=== PATIENT | male | born 1990 | race Caucasian/White ===

== ENCOUNTER 2022-07-28 18:44 | Emergency (ER) | payer OTHER, SELFPAY ==
[2022-07-28 18:46] VITALS: BP 169/95; PULSE 127; RESP 14; TEMP 36.8; O2SAT 93; BMI 36.8
--- NOTE | 2022-07-28 18:52 | EX.ED.GENINJ ---
HPI <LAURA Ring - Last Filed: 07/28/22 19:38> History of Present Illness Chief Complaint: Laceration Narrative Narrative: Patient was carving a pumpkin when he accidentally cut the webspace between his left thumb and index finger. He is right-hand dominant. Bleeding controlled. This occurred just prior to arrival. Last tetanus unknown. PFSH <LAURA Ring - Last Filed: 07/28/22 19:38> PFSH Medical History Smoker Allergy/AdvReac Type Severity Reaction Status Date / Time No Known Allergies Allergy Verified 07/28/22 18:45 Social History Smoking Status: Current every day smoker tobacco type: e-cigarettes ROS <LAURA Ring - Last Filed: 07/28/22 19:38> ROS ED ROS Narrative Constitutional: Negative for fever, chills, malaise. Eyes: Negative for visual change. ENT: Negative for sore throat, rhinorrhea. CVS: Negative for palpitations, chest pain. Respiratory: Negative for shortness of breath, cough. GI: Negative for abdominal pain, nausea, vomiting. : Negative for dysuria, hematuria or frequency. Neuro: Negative for motor/sensory dysfunction. Skin: Positive for laceration. Musc: Negative for joint pain, swelling, trauma. Heme: Negative for easy bruising, bleeding, lymphadenopathy. EXAM <LAURA Ring - Last Filed: 07/28/22 19:38> Physical Exam Narrative Exam Narrative: CONST: Patient sitting in no acute distress. EYES: Normal inspection. NECK: Normal inspection. RESP: No respiratory distress, CTAB. CVS: Regular rate and rhythm, no murmur, no gallop. SKIN: 1 cm laceration in the webspace between left thumb and index finger. EXTREMITIES: Normal appearance, full range of motion with normal motor and sensory function in median ulnar and radial distributions, 2+ radial pulse and brisk cap refill in all digits of left upper extremity. NEURO: Oriented x4. PSYCH: Normal affect. Const Vital Signs: 07/28/22 18:46 Temperature 98.2 F Temperature Source Temporal Pulse Rate 127 H Respiratory Rate 14 Blood Pressure 169/95 H Blood Pressure Mean 119 Pulse Ox 93 Oxygen Delivery Method Room Air <Dr. David Richard MD - Last Filed: 07/28/22 19:18> Physical Exam Const Vital Signs: 07/28/22 18:46 Temperature 98.2 F Temperature Source Temporal Pulse Rate 127 H Respiratory Rate 14 Blood Pressure 169/95 H Blood Pressure Mean 119 Pulse Ox 93 Oxygen Delivery Method Room Air <Dr. David Richard MD - Last Filed: 07/28/22 19:18> Procedures Lacerations left hand: Length: 1 cm Comment: see details below MDM <LAURA Ring - Last Filed: 07/28/22 19:38> [facility] Narrative Medical decision making narrative: Patient has a 1 cm laceration to the webspace between the left thumb and index finger from a pumpkin carving knife. Extremity has full range of motion and is neurovascularly intact. Wound was anesthetized with 2 cc of 1% lidocaine and thoroughly irrigated with sterile saline. Prepped and draped in sterile condition. I closed the wound with 3 simple interrupted sutures of 5-0 Ethilon with good approximation. Bacitracin bandage applied and we discussed wound care and to return for signs of infection. Tetanus was updated. Patient was counseled to have stitches removed in 7 days and was discharged in stable condition. <Dr. David Richard MD - Last Filed: 07/28/22 19:18> [facility] Treatment and Re-Evaluation Narrative: Seen and evaluated independently and in conjunction with physician assistant professor of criminal justice. Agree with notes above unless documented otherwise. 1 cm linear clean laceration in the webspace between the thumb and the left index finger. Agree with repair and tetanus update. Neurovascular intact distally before and after repair. Discharge Plan Triage Chief Complaint: Laceration ED Midlevel Provider: Ирина Chao ED Provider: David Richard Dx/Rx/DC Orders Clinical Impression: Laceration of hand, left Instructions: ED Laceration Extremity Primary Care Provider: Care Physician,No Primary Referrals: Helio Avelar MD [Non-Staff] - Activity Restrictions/Additional Instructions: You can shower as normal but do not submerge hands underwater for any period of time. Stitches need removed in 7 days. If any signs of infection like redness swelling or pus develop come back to the ER immediately Disposition Disposition: Home, Self Care
[2022-07-28] MEDS: Diphth,Pertuss(Acell),Tet Vac 0.5 ML Vial IM (19:17)
[2022-07-28 19:48] VITALS: BP 145/75; PULSE 89; RESP 16; O2SAT 98
[2022-07-28] MEDS: Lidocaine 1% (20 ml mdv) 20 ML Vial INFILT (19:49)
== END 2022-07-28 19:55 | disposition home or self-care (01) ==
LOC: ED 19:20
PROVIDERS: Emergency Provider Emergency Medicine; Visit Provider Emergency Medicine
DX: S61.412A Laceration without foreign body of left hand, initial encounter (principal); F17.290 Nicotine dependence, other tobacco product, uncomplicated; Z23 Encounter for immunization; W26.0XXA Contact with knife, initial encounter
CPT/HCPCS: 12001; 90471; 90715; 99283

== ENCOUNTER 2023-01-16 06:48 | Emergency (ER) | payer OTHER, SELFPAY ==
[2023-01-16 06:49] VITALS: BP 187/96; PULSE 109; RESP 18; TEMP 36.6; O2SAT 98; BMI 38.5
--- NOTE | 2023-01-16 07:10 | EDS_ITS ---
HPI History of Present Illness Chief Complaint: Burn Narrative Narrative: 32-year old male who denies significant past medical history, [id number], presents with burn to the dorsum of his left hand mainly on his fingers, numbers 3 4 and 5. He states yesterday at work, his manifold hose got stuck. While he was working, he was wearing gloves that had rubber on the palms, but mesh on the back. There was no refrigerant leak, and he sustained [place] to the back of his fingers on his right hand. He denies other injury. He rinsed off the refrigerant, and continue to work. At around 4 PM yesterday, he started having pain in his digits. He awoke this morning with blistering of the skin on the back of his right hand, once again mainly digits 4 and 3, and 5. He presents because of the pain and to file Workmen's Comp. compensation. [facility] Medical History Smoker Medical History no medical history Home Medications ibuprofen 200 mg tablet 400 mg PO DAILY 01/16/23 [History Last Taken Unknown] Allergy/AdvReac Type Severity Reaction Status Date / Time No Known Allergies Allergy Verified 07/28/22 18:45 Social History Smoking Status: Current every day smoker tobacco type: e-cigarettes ROS ROS ED ROS Narrative Constitutional: No fever, no chills. HEENT: No sore throat. No neck pain. No loss of vision. No rhinorrhea. Cardiovascular: No chest pain. No palpitations. No pedal edema. Respiratory: No cough, no shortness of breath. Abdominal: No abdominal pain. No nausea. No vomiting. Genitourinary: No dysuria. No hematuria. Musculoskeletal: No myalgias. No arthralgias. Neurologic: No headaches. No dizziness. No lightheadedness. Skin: No rash. No change in color. Positive blistering of skin on back of fingers of right hand. Psychiatric: No depression. No anxiety. EXAM Physical Exam Narrative Exam Narrative: Afebrile. Vital signs noted. HEENT: Normocephalic. Atraumatic. PERRL, EOMI. Neck soft and supple. No point tenderness or step off. Cardiovascular: Regular rate and rhythm. No murmurs, rubs, or gallops appre ciated. Respiratory: No tachypnea. Lungs clear to auscultation bilaterally. Gastrointestinal: Abdomen soft, nontender, with normoactive bowel sounds. No rebound or guarding. Neurological: Awake. Alert. Nonfocal, nonlateralizing. Skin: No rash. Normal color. Positive blistering of skin on dorsum of fingers, mainly #4, #3, and #5. No circumferential [place] or swelling. Good capillary refill. Able to abduct and adduct fingers. Able to oppose thumb. Some first- degree [place] on fingers of left hand and on second finger right hand. Second- degree [place] mainly on right hand and aforementioned fingers Musculoskeletal: No pedal edema. Full range of motion extremities. Range of motion of fingers on #4 mildly limited secondary to tense blister. Patient is able to write with his right hand. Const Vital Signs: 01/16/23 06:49 01/16/23 06:53 Temperature 97.9 F Temperature Source Oral Pulse Rate 109 H Respiratory Rate 18 Respiratory Effort Normal Blood Pressure 187/96 H Blood Pressure Mean 126 Pulse Ox 98 Oxygen Delivery Method Room Air MDM MDM MDM Narrative Medical decision making narrative: I do feel that this is a chemical burn that is at least 18 hours old. He has already cleansed the area. He was told to keep the area clean and dry, and keep the blisters intact. He will be placed in a dry, sterile dressing. He was also offered follow-up at the [place] [facility] [place]. He was also referred to the [facility]. He was given a note for limited use of his right hand at work for the next week or until cleared by [facility]. I feel he can be discharged safely home with follow-up. He received his last tetanus immunization in July of last year. He will look for signs of infection including fever, drainage of pus from the wounds. He was told of the risk of scarring to his skin and acknowledges an understanding. Return instructions to the emergency department were reviewed. Disposition is discharged home in stable condition. Discharge Plan Triage Chief Complaint: Burn ED Provider: Dereje Marroquin Dx/Rx/DC Orders Clinical Impression: Chemical burn of multiple fingers of right hand excluding thumb, Elevated blood pressure reading, Chemical burn of multiple fingers of left hand not including thumb Instructions: ED First- and Second-Degree [place] ..., ED Chemical Burn, Skin, ED Hypertension, To Be Confirmed Prescriptions: No Action ibuprofen 200 mg Tablet 400 mg PO DAILY Stand Alone Forms: Work Status Form Primary Care Provider: Care Physician,No Primary Referrals: Care Physician,No Primary [Primary Care Provider] - Clinic,[facility] [Non-Staff] - 2 Days for wound check Activity Restrictions/Additional Instructions: Do Not pop the blisters on the back of your fingers. Keep blisters covered with bandages clean, dry, and intact. Limited use of right hand for the next week or until cleared by [facility] clinic. Keep an eye on your blood pressure, and check it over the next few days. You may need to start medication for elevated blood pressure. Disposition Disposition: Home, Self Care
== END 2023-01-16 07:55 | disposition home or self-care (01) ==
PROVIDERS: Emergency Provider Emergency Medicine; Visit Provider Emergency Medicine
DX: T23.431A Corrosion of unspecified degree of multiple right fingers (nail), not including thumb, initial encounter (principal); T23.432A Corrosion of unspecified degree of multiple left fingers (nail), not including thumb, initial encounter; R03.0 Elevated blood-pressure reading, without diagnosis of hypertension; F17.290 Nicotine dependence, other tobacco product, uncomplicated; Y99.0 Civilian activity done for income or pay
CPT/HCPCS: 99282

== ENCOUNTER 2024-07-02 07:45 | Inpatient (IN) | payer OTHER, SELFPAY ==
[2024-07-02] VITALS (12 sets, daily range): BP systolic 102–126; BP diastolic 59–85; PULSE 107–158; RESP 16–27; TEMP 36.9–38.6; O2SAT 92–96; BMI 38.4
--- NOTE | 2024-07-02 08:04 | EX.ED.UPPERE ---
HPI History of Present Illness HPI Narrative: Healthy 33-year-old [id number] male no significant past medical history complaining of pain and swelling to his right elbow. He developed a fever on Friday redness and swelling to his elbow on Friday. Denies any fall injury or trauma. No prior surgery to his right elbow or arm. Chief Complaint: Upper Extremity Injury Informant: patient Occured/Mechanism Mechanism/Context: No injury and No blunt trauma Onset/Context/Timing Onset: Days Context: Gradual Onset Timing: Continuous Quality of Pain: Sharp Current Severity: Moderate Maximum Severity: Moderate Associated Symptoms Associated Symptoms: Negative for Parasthesia, Weakness or Loss of Funtion Narrative Narrative: 33-year-old male with right elbow pain, redness and swelling. Fever. Prior similar symptoms: No Recent Illness/Hospitalization: No PFSH PFSH Medical History Hypertension Smoker Home Medications ?Medication ?Instructions ?Recorded ?Last Taken ?Type ibuprofen 400 mg tablet 400 mg PO DAILY 01/23/23 07/02/24 History Allergy/AdvReac Type Severity Reaction Status Date / Time No Known Allergies Allergy Verified 07/02/24 07:58 Social History Smoking Status: Current every day smoker tobacco type: e-cigarettes alcohol intake: current alcohol intake frequency: a few times a week ROS ROS ED ROS Narrative Fever. Right elbow redness and swelling and pain. Constitutional Constitutional ED: Reports fever(s); Denies chills Eyes Eyes: Denies blurry vision ENT ENT ED: Denies ear pain Cardiovascular Cardiovascular: Denies chest pain Respiratory/Chest Respiratory/Chest: Denies cough Gastrointestinal Gastrointestinal: Reports nausea and vomiting; Denies abdominal pain Genitourinary Genitourinary ED: Denies dysuria Musculoskeletal Musculoskeletal: Denies back pain Integumentary Denies abscess Neurologic Neurologic: Denies headache(s) Psychiatric Psychiatric: Denies anxiety Endocrine Endocrinology: Denies cold intolerance Hematologic/Lymphatic Hematologic/Lymphatic: Denies easy bleeding Allergic/Immunologic Allergic/Immunologic ED: Denies mouth swelling EXAM Physical Exam Narrative Exam Narrative: 14-year-old male vital signs are stable he is tachycardic at 158. Temperature 99.1. He does not look septic or toxic. H EENT exam unremarkable. Neck nontender no lymphadenopathy. Lungs clear to auscultation bilaterally. Heart tachycardic rate about 135. No murmur. Chest wall ribs nontender. Abdomen soft nontender. Moving all 4 extremities. Neurovascularly intact. Normal media services coordinator strength. Normal radial pulses. Dorsi plantarflexion intact. His right elbow significantly swollen. No obvious abscess. No fluctuance. He has normal flexion extension of his right elbow. Normal media services coordinator strength in his right hand and radial pulse. Normal touch sensation. No axillary lymphadenopathy. Shoulder is nontender. This appears to be a cellulitis of his right elbow. I do not see an obvious abscess. Cannot completely rule out a bursitis. There is no signs of a septic arthritis because he has good range of motion to his elbow. Const Vital Signs: 07/02/24 07:46 07/02/24 07:49 Temperature 99.0 F 99.1 F Temperature Source Oral Oral Pulse Rate 158 H 139 H Respiratory Rate 18 19 H Blood Pressure 118/78 126/78 H Blood Pressure Mean 91 94 Pulse Ox 95 94 Oxygen Delivery Method Room Air Room Air Positive well nourished and well developed; Negative for obese, cachectic, contractures or unkempt General Appearance ED: well developed and NAD; Negative for unkempt, cachectic, contractures, cyanotic or diaphoretic Nutritional Appearance: Negative for cachectic or obese HEENT Reports moist mucous membranes normocephalic and atraumatic; Negative for trauma or tenderness Eyes PERRL and EOMs intact bilaterally Neck full ROM and supple General: Negative for tenderness Lymph Lymphatic: Negative for other Chest Wall inspection of chest normal and palpation of chest normal Chest: Negative for other Resp normal respiratory effort and clear to auscultation bilaterally Effort and Inspection: Negative for pain with movement Auscultation: Negative for rales, rhonchi, wheezes or diminished lung sounds Cardio regular rhythm, S1 normal heart sound, S2 normal heart sound and no murmurs; Negative for regular rate Rate: tachycardic GI non-tender, non-distended and no masses Inspection: Negative for abdominal distention Auscultation: normoactive bowel sounds Palpation: soft; Negative for tender, guarding or rebound tenderness present Back/Spine no CVA tenderness General Back: Negative for CVA tenderness Cervical Spine: Negative for cervical spine tenderness Thoracic Spine / Upper Back: Negative for thoracic spinal tenderness Lumbar Spine / Lower Back: Negative for lumbar spinal tenderness Extremity full ROM; Negative for normal to inspection Extremity Narrative: Right elbow cellulitis with swelling. Mild tenderness. Full flexion extension. No signs of septic joint. No obvious abscess. General Extremety ED: Yes edema General Extremity: edema Neuro oriented x3, CN's II-XII intact bilaterally, moves all extremities, no focal motor deficits and no sensory deficits noted Sensorium / Orientation: alert, oriented to person, oriented to place and oriented to time; Negative for orientation impaired, lethargic or stuporous Motor Exam: strength 5/5 throughout Psych mental status grossly normal Appearance: Negative for unkempt Attitude: No agitated Mood & Affect: Negative for depressed, anxious or tearful Skin Skin Narrative: Right elbow cellulitis with swelling. General Skin Exam: Negative for petechiae Lesions: no lesions Rashes: No no rashes and rashes noted MDM MDM MDM Narrative Medical decision making narrative: 33-year-old male tachycardic with right elbow cellulitis. Screening labs. X-ray. Started on IV Unasyn. Tylenol for fever and morphine for pain along with Zofran for nausea. Repeat exam unchanged. Patient's and mom are present in the room. We discussed his test results and diagnosis. He and them are comfortable with admission for further IV antibiotics. I have the hospitalist on page. History & Record Review Discussion w/independent historian: Patient Additional record(s) reviewed:: No prior records Lab Data Attestation: I reviewed the patient's lab results. Lab results narrative: CBC shows white count of 24,900. Normal H&H. Electrolytes show sodium 134. Radiography Diagnostic Testing: Right elbow x-ray, 3 views, interpreted by myself shows soft tissue swelling. No subcu air. No abscess. No bony abnormalities. Discharge Plan Dx/Rx/DC Orders Clinical Impression: Cellulitis of right elbow, Leukocytosis Disposition Disposition: Acute Care Hospital [facility]
[2024-07-02] MEDS: Acetaminophen 500 MG Tablet 1000 MG PO (08:12)
[2024-07-02] MEDS: morphine 8 MG/ML Syringe 6 MG IV (08:13)
[2024-07-02] MEDS: 0.9% Normal Saline (1000mL) 1,000 ML 1000 ML IV (08:13)
[2024-07-02] MEDS: Ondansetron 4 MG/2 ML Vial IV (08:13)
[2024-07-02] MEDS: Ampicillin/Sulbactam 3 GM in 0.9% Normal Saline (100mL MB+) 100 ML IV ×4 (08:13→23:39)
[2024-07-02 08:22] LABS: Absolute Lymphocyte Count 0.55 X10^3/uL (0.83-4.51); Absolute Neutrophil Count 21.7 X10^3/uL (2.0-7.7); Basophil# 0.15 X10^3/uL; Basophil% 0.6 % (0-1); Eosinophil# 0.03 X10^3/uL; Eosinophils% 0.1 % (0-5); Hematocrit 45.1 % (40-54); Hemoglobin 15.2 g/dL (13.0-16.5); Lymphocyte # 0.55 X10^3/ul (0.83-4.51); Lymphocyte % 2.2 % (19-41); Mean Corp Hgb Conc 33.7 g/dL (32-36); Mean Corpuscular Hgb 30.8 pg (27.0-32.0); Mean Corpuscular Volume 91.3 fL (80-94); Monocyte# 2.15 X10^3/uL; Monocyte% 8.6 % (0-10); NRBC Flagged by Analyzer 0 % (0-5); Neutrophil # 21.71 X10^3/uL (2.7-7.7); Neutrophil % 87.2 % (47-70); POSITIVE DIFFERENTIAL YES; Platelet Count 177 K/mm3 (150-450); RBC Distribution Width CV 11.9 % (11.6-14.6); RBC Distribution Width SD 39.8 fl (35.1-43.9); Red Blood Count 4.94 M/mm3 (4.6-6.2); White Blood Count 24.9 K/mm3 (4.4-11.0)
[2024-07-02 08:27] LABS: Differential Indicated SCAN CRITERIA MET
[2024-07-02 08:36] LABS: Anion Gap 11 (5-15); BUN 11 mg/dL (7-18); BUN/Creat Ratio 8.7 RATIO (10-20); Calcium,Total 9.6 mg/dL (8.5-10.1); Chloride 102 mmol/L (98-107); Creatinine, Serum 1.26 mg/dL (0.70-1.30); EST Glomerular Filtration Rate 70 mL/min (>60); Est Glom Filt Rate - Afr Amer 85 mL/min (>60); Estimated Creatinine Clearance 110.03 ml/min; Glucose 136 mg/dL (74-106); Potassium 3.5 mmol/L (3.5-5.1); Sodium Level 134 mmol/L (136-145)
--- NOTE | 2024-07-02 08:40 | RAD_ITS ---
STUDY: X-RAY - RIGHT ELBOW REASON FOR EXAM: Male, 33 years old. Cellulitis . 2 day history of swelling and redness. TECHNIQUE: 3 view(s) of the elbow. COMPARISON: None. FINDINGS: Normal visualized humerus, radius and ulna. Normal radiocapitellar and ulnotrochlear articulations. Diffuse soft tissue swelling overlying the posterior aspect of the proximal ulna. RAD/Elbow min 3 Views IMPRESSION: Soft tissue swelling overlying the posterior proximal ulna. Electronically Signed: Waqar Clayton MD at 8:57 EDT ,
--- NOTE | 2024-07-02 09:08 | HP.PCM.HOS_ITS ---
HPI - General General Date of Admission: 07/02/24 Date of Service: 07/02/24 Chief Complaint: Right elbow pain and swelling HPI Narrative MARIO MICHAUD, is a 33 M who presented to [facility] ED on 07/02/2024 with worsening right elbow pain and swelling concerning for cellulitis. Patient states he developed a fever on Friday and subsequently developed redness and swelling of his elbow on Friday. Denied any trauma to the area. Has had no prior surgery to his right elbow or arm. Has never had anything like this happen before, no prior history of cellulitis. Labs notable for WBC count of 24.9K with neutrophil predominance. Elbow x-ray showed diffuse soft tissue swelling overlying the posterior proximal ulna. He was febrile to 101.5F and had sinus tachycardia to the 130s. Was given a dose of IV fluids, a dose of IV Unasyn and pain medication, and hospitalist was contacted for admission. I saw the patient at bedside in the ED. Patient was sitting up fairly comfortably in bed and in no acute distress. He did continue to have sinus tachycardia to the 110s. On exam, his right elbow had a significant amount of redness and swelling of the elbow. This started just below the elbow and tracked up to 2 to 3 inches above the elbow. Patient notably had no pain or tenderness to with movement at the elbow. No significant fluctuance was noted. He reported feeling some improvement after being given the medications above. CT right upper extremity was done and this again showed diffuse subcutaneous swelling surrounding the distal portion of the right humerus and extending just below the right elbow but with no evidence of joint effusion, abscess remission or bony abnormality. Will be admitted for further management. [facility] Medical History Hypertension Smoker Home Medications ?Medication ?Instructions ?Recorded ?Last Taken ?Type ibuprofen 400 mg tablet 400 mg PO DAILY 01/23/23 07/02/24 History Allergy/AdvReac Type Severity Reaction Status Date / Time No Known Allergies Allergy Verified 07/02/24 07:58 Social History Smoking Status: Current every day smoker tobacco type: e-cigarettes alcohol intake: current alcohol intake frequency: a few times a week ROS Constitutional Constitutional: Reports fatigue and fever(s); Denies chills or weakness Eyes Eyes: Denies change in vision Cardiovascular Cardiovascular: Denies chest pain Respiratory/Chest Respiratory/Chest: Denies shortness of breath at rest Gastrointestinal Gastrointestinal: Denies abdominal pain Genitourinary Genitourinary: Denies dysuria Musculoskeletal Musculoskeletal: Reports joint pain; Denies arthralgias or myalgias Neurologic Neurologic: Denies dizziness, focal weakness, headache(s), numbness or paresthesias Vital Signs Vital Signs Vital Signs: 07/02/24 07:46 07/02/24 07:49 Temperature 99.0 F 99.1 F Temperature Source Oral Oral Pulse Rate 158 H 139 H Respiratory Rate 18 19 H Blood Pressure 118/78 126/78 H Blood Pressure Mean 91 94 Pulse Ox 95 94 Oxygen Delivery Method Room Air Room Air Weight Weight: 121.563 kg Body Mass Index (BMI) 38.4 Physical Exam Const alert, oriented x3 and no apparent distress Constitutional Narrative: Pleasant younger male, obese, mildly fatigued and flushed appearing, otherwise sitting up comfortably in bed, conversing normally, in no acute distress. General Appearance: cooperative and comfortable HEENT normocephalic, head/scalp atraumatic, hearing grossly normal bilaterally and nasal mucous membranes and turbinates normal Eyes PERRL, EOMs intact bilaterally and conjunctivae normal Neck full ROM Chest inspection of chest normal Resp normal respiratory effort, normal air movement, no use of accessory muscles and clear to auscultation bilaterally Cardio no murmurs and peripheral pulses 2+ throughout Cardio Narrative: Sinus tachycardia. GI normal to inspection, nondistended, normoactive bowel sounds, soft to palpation, non-tender and non-distended Back/Spine normal ROM Extremity Extremity Narrative: Significant erythema and swelling noted around the right elbow. Mild tenderness to palpation. No decreased range of movement at the elbow. Neuro moves all extremities and no focal motor deficits Speech: speech normal Psych mental status grossly normal Results Lab / Micro Data 07/02/24 07:55 07/02/24 07:55 Labs: Laboratory Results - last 24 hr 07/02/24 07:55: WBC 24.9 H, RBC 4.94, Hgb 15.2, Hct 45.1, MCV 91.3, MCH 30.8, MCHC 33.7, RDW Std Deviation 39.8, RDW Coeff of Tono 11.9, Plt Count 177, MPV 11.0, Immature Gran % (Auto) 1.300 H, Neut % (Auto) 87.2 H, Lymph % (Auto) 2.2 L , [place] % (Auto) 8.6, Eos % (Auto) 0.1, Baso % (Auto) 0.6, Absolute Neuts (auto) 21.7 H, Absolute Lymphs (auto) 0.55 L, Nucleated RBC % 0, Diff Path Review February, Sodium 134 L, Potassium 3.5, Chloride 102, Carbon Dioxide 21.0, Anion Gap 11, BUN 11, Creatinine 1.26, Estim Creat Clear Calc 110.03, Est GFR (MDRD) Af Amer 85, Est GFR (MDRD) Non-Af 70, BUN/Creatinine Ratio 8.7 L, Glucose 136 H, Calcium 9.6 Imaging Radiology Impression Elbow X-Ray 07/02/24 08:40 IMPRESSION: Soft tissue swelling overlying the posterior proximal ulna. Electronically Signed: Waqar Clayton MD at 8:57 EDT , Assessment & Plan Assessment/Plan (1) Cellulitis of right elbow: (2) Sinus tachycardia: PLAN: Plan Patient is a 33-year-old male who presented [facility] ED on 07/02/2024 with worsening right elbow pain and swelling. 1. Right arm cellulitis ? Admit under inpatient status to PCU. Presented with 2 to 3-day history of worsening right elbow pain and swelling with fevers. CT upper extremity showed diffuse subcutaneous swelling surrounding the distal portion of the right humerus and extending just below the right elbow but with no evidence of joint effusion, abscess remission or bony abnormality. Consistent with simple cellulitis, no concern for abscess or septic joint. Febrile, sinus tachycardia and leukocytosis on admit but no end organ dysfunction noted, did not meet sepsis criteria. Will treat with IV Unasyn for now. Will give IV Toradol x 4 doses for pain and swelling. Tylenol, oxycodone and IV Dilaudid as needed for further pain control. Follow-up a.m. CBC. 2. Persistent sinus tachycardia ? Sinus tachycardia to the 130s noted on admission. Improved to the 110s with IV fluid resuscitation. Presumed secondary to acute infection. Encourage p.o. intake and can give further IV fluid boluses as needed. 3. Obesity ? BMI 38 on admit. Encouraged lifestyle modifications. Complicates hospital course, care and prognosis. DVT prophylaxis: Low risk, ambulate CODE STATUS: Full code, verified Expected disposition: Home, 2 to 3 days Total clinical time spent by myself addressing the patient's medical issues, reviewing all the data, and collaborating with patient's care team: 55 minutes. Charges/Coding Visit Charges Inpatient E&M: 58015 Init Hosp L2
--- NOTE | 2024-07-02 09:12 | CT_ITS ---
STUDY: CT SCAN RIGHT UPPER EXTREMITY RIGHT. REASON FOR EXAM: Male, 33 years old. Right elbow cellulitis, eval for abscess RADIATION DOSAGE (If Supplied By Facility): CTDIvol = ( 41.02 ) mGy, DLP = ( 3310.56 ) mGycm. Individualized dose optimization techniques were used for this CT.? TECHNIQUE: Multiple axial tomographic images were obtained following good cc of Isovue-300. Coronal and sagittal reconstructions obtained as well. COMPARISON: Comparison is made with prior radiograph done earlier today. FINDINGS: There is diffuse subcutaneous swelling surrounding the distal portion of the right humerus and extending just below the right elbow. No evidence of a effusion or abscess formation at this time. There is evidence of overlying skin thickening. No bony abnormality is present. CT/Extremity Upper WITH Contrast IMPRESSION: Findings suggestive of cellulitis as described. No focal abscess or fluid collection is seen at this time. Electronically Signed: Waqar Clayton MD at 9:56 EDT ,
[2024-07-02] MEDS: Ketorolac 30 MG/ML Syringe IV (09:13)
[2024-07-02] MEDS: Lactated Ringers 1,000 ML 500 ML IV (09:28)
[2024-07-02] MEDS: oxyCODONE 5 MG Tablet PO ×2 (12:31→16:29)
[2024-07-02] MEDS: HYDROmorphone 0.5 MG/0.5 ML SYRINGE IV ×3 (13:31→23:40)
[2024-07-02] MEDS: Acetaminophen 325 MG Tablet 650 MG PO ×2 (13:31→20:02)
[2024-07-02] MEDS: Ketorolac 15 MG/ML Vial IV ×2 (15:38→20:02)
[2024-07-02] MEDS: Lactated Ringers 1,000 ML 999 ML IV (17:41)
[2024-07-03] VITALS (8 sets, daily range): BP systolic 81–116; BP diastolic 47–73; PULSE 101–125; RESP 16–18; TEMP 36.8–38.2; O2SAT 92–97
--- NOTE | 2024-07-03 03:00 | NURSING ---
emergency documentation in effect sice 07/03/24, 0300.
[2024-07-03] MEDS: Ketorolac 15 MG/ML Vial IV ×3 (03:04→19:20)
[2024-07-03] MEDS: Acetaminophen 325 MG Tablet 650 MG PO ×3 (03:05→18:16)
[2024-07-03] MEDS: 0.9% Saline Lock 10 ML Syringe IV ×4 (03:06→19:05)
[2024-07-03] MEDS: Ampicillin/Sulbactam 3 GM in 0.9% Normal Saline (100mL MB+) 100 ML IV (05:18)
[2024-07-03 06:39] LABS: Hematocrit 38.4 % (40-54); Hemoglobin 12.7 g/dL (13.0-16.5); Mean Corp Hgb Conc 33.1 g/dL (32-36); Mean Corpuscular Hgb 31.1 pg (27.0-32.0); Mean Corpuscular Volume 94.1 fL (80-94); Platelet Count 136 K/mm3 (150-450); RBC Distribution Width CV 12.1 % (11.6-14.6); RBC Distribution Width SD 42.2 fl (35.1-43.9); Red Blood Count 4.08 M/mm3 (4.6-6.2); White Blood Count 20.8 K/mm3 (4.4-11.0)
[2024-07-03 07:36] LABS: Anion Gap 7 (5-15); BUN 16 mg/dL (7-18); BUN/Creat Ratio 13.3 RATIO (10-20); Calcium,Total 8.5 mg/dL (8.5-10.1); Chloride 100 mmol/L (98-107); EST Glomerular Filtration Rate 74 mL/min (>60); Est Glom Filt Rate - Afr Amer 90 mL/min (>60); Estimated Creatinine Clearance 115.53 ml/min; Glucose 114 mg/dL (74-106); Potassium 3.8 mmol/L (3.5-5.1); Sodium Level 133 mmol/L (136-145)
[2024-07-03] MEDS: oxyCODONE 5 MG Tablet PO ×3 (07:43→21:57)
--- NOTE | 2024-07-03 12:39 | PCM.PN.HOSP ---
Reason for Visit Reason for Visit: Diagnoses Cellulitis of right upper limb (07/02/24) Tachycardia, unspecified (07/02/24) Subjective Subjective Saw patient at bedside this morning, and kids present. Patient was sitting up comfortably in bed but unfortunately his elbow did not appear much improved from admission. He still appeared somewhat flushed and reported feeling more tired than usual. Stated he was eating and drinking more than the last few days. No other new concerns today. Objective Data Objective Data Vital Signs: Vital Signs Temp Pulse Resp BP Pulse Ox O2 Del Method 98.2 F 101 H 18 116/64 94 Room Air 07/03/24 05:15 07/03/24 05:15 07/03/24 05:15 07/03/24 05:15 07/03/24 08:14 07/03/24 08:14 Oxygen Delivery Method Room Air Weight: 121.563 kg Body Mass Index (BMI) 38.4 Intake & Output: Intake and Output for Last 24 Hours 07/01/24 07/02/24 07/03/24 23:59 23:59 23:59 Intake Total 3336 / 3336 1024 / 1024 Balance 3336 / 3336 1024 / 1024 Lab / Micro Data 07/03/24 06:30 07/03/24 06:30 Labs: Laboratory Results - last 24 hr 07/03/24 06:30: WBC 20.8 H, RBC 4.08 L, Hgb 12.7 L, Hct 38.4 L, MCV 94.1 H, MCH 31.1, MCHC 33.1, RDW Std Deviation 42.2, RDW Coeff of Tono 12.1, Plt Count 136 L, MPV 11.0, Sodium 133 L, Potassium 3.8, Chloride 100, Carbon Dioxide 26.0, Anion Gap 7, BUN 16, Creatinine 1.20, Estim Creat Clear Calc 115.53, Est GFR (MDRD) Af Amer 90, Est GFR (MDRD) Non-Af 74, BUN/Creatinine Ratio 13.3, Glucose 114 H, Calcium 8.5 Physical Exam Const alert, oriented x3 and no apparent distress Constitutional Narrative: Pleasant younger male, obese, mildly fatigued and flushed appearing, otherwise sitting up comfortably in bed, conversing normally, in no acute distress. Stable. General Appearance: cooperative and comfortable HEENT normocephalic, head/scalp atraumatic, hearing grossly normal bilaterally and nasal mucous membranes and turbinates normal Eyes PERRL, EOMs intact bilaterally and conjunctivae normal Neck full ROM Chest inspection of chest normal Resp normal respiratory effort, normal air movement, no use of accessory muscles and clear to auscultation bilaterally Cardio no murmurs and peripheral pulses 2+ throughout Cardio Narrative: Sinus tachycardia. GI normal to inspection, nondistended, normoactive bowel sounds, soft to palpation, non-tender and non-distended Back/Spine normal ROM Extremity Extremity Narrative: Significant erythema and swelling noted around the right elbow. Mild tenderness to palpation. No decreased range of movement at the elbow. Patient unfortunately with minimal improvement on hospital day 2. Neuro moves all extremities and no focal motor deficits Speech: speech normal Psych mental status grossly normal Assessment & Plan Assessment/Plan (1) Cellulitis of right elbow: (2) Sinus tachycardia: PLAN: Plan Patient is a 33-year-old male who presented [facility] ED on 07/02/2024 with worsening right elbow pain and swelling. 1. Right arm cellulitis ? Presented with 2 to 3-day history of worsening right elbow pain and swelling with fevers. CT upper extremity showed diffuse subcutaneous swelling surrounding the distal portion of the right humerus and extending just below the right elbow but with no evidence of joint effusion, abscess remission or bony abnormality. Consistent with simple cellulitis, no concern for abscess or septic joint. Febrile, sinus tachycardia and leukocytosis on admit but no end organ dysfunction noted, did not meet sepsis criteria. Treated with IV Unasyn on admission but patient unfortunately with minimal improvement on hospital day 2, switched to IV doxycycline. Given 4 doses of IV Toradol on admit for pain and swelling with some improvement. Continue tylenol, oxycodone and IV Dilaudid as needed for further pain control. 2. Sinus tachycardia, improving ? Sinus tachycardia to the 130s noted on admission. Improved to the 110s with IV fluid resuscitation. Presumed secondary to acute infection. Remained mildly tachycardic to the low 100s on hospital day 2 with borderline blood pressure, given another IV fluid bolus. Encouraging p.o. intake. 3. Obesity ? BMI 38 on admit. Encouraged lifestyle modifications. Complicates hospital course, care and prognosis. DVT prophylaxis: Low risk, ambulate CODE STATUS: Full code, verified Expected disposition: Home, 1 to 2 days Total clinical time spent by myself addressing the patient's medical issues, reviewing all the data, and collaborating with patient's care team: 35 minutes. Charges/Coding Visit Charges Inpatient E&M: 85172 Subs Hosp L2
[2024-07-03] MEDS: Doxycycline 100 MG in Dextrose 5%-Water (250mL Bag) 250 ML 250 MG IV ×2 (14:10→20:28)
[2024-07-03] MEDS: HYDROmorphone 0.5 MG/0.5 ML SYRINGE IV (14:16)
--- NOTE | 2024-07-03 14:30 | CASEMGMT ---
XOCHITL JACOB Assessment Face to Face with patient for initial transition planning/care coordination assessment. XOCHITL JAOCB introduced self and role at [facility], pt voices understanding. Pt is A&Ox4 and is resting comfortably in bed and is calm. Care providers, pharmacy, and demographics verified. Admitting dx: Rt Elbow Cellulitis, Tachycardia PCP: No PCP. Pt declined list and states that he is going to use who his goes through Specialists: denies Preferred Pharmacy: [facility] Insurance: [employer] Prescription Benefit: Yes LNOK: Vanessa Melgar (W) Living Arrangements: Pt lives with his and 2 kids (ages 11 and 15) in a two story home with one step to enter ADLs/IADLs: Ind Transportation: Self, DME: Denies all DME uses or needs HHC/SNF: Denies Hx or needs Pt?s goal: Home Plan: Home no needs. 6-Click is 24. Pt denies further needs at this time and states that he feels safe and comfortable discharging home with the help of his once he is medically ready. John Denson RN, CM
[2024-07-03] MEDS: Lactated Ringers 1,000 ML 999 ML IV ×2 (15:10→19:05)
[2024-07-04] VITALS (7 sets, daily range): BP systolic 117–132; BP diastolic 64–81; PULSE 105–115; RESP 16–18; TEMP 36.7–37.7; O2SAT 94–100
[2024-07-04] MEDS: 0.9% Saline Lock 10 ML Syringe IV ×6 (00:19→14:39)
[2024-07-04] MEDS: HYDROmorphone 0.5 MG/0.5 ML SYRINGE IV ×2 (00:19→04:21)
[2024-07-04] MEDS: Acetaminophen 325 MG Tablet 650 MG PO ×3 (00:19→14:35)
[2024-07-04 06:12] LABS: Hematocrit 37.4 % (40-54); Hemoglobin 12.4 g/dL (13.0-16.5); Mean Corp Hgb Conc 33.2 g/dL (32-36); Mean Corpuscular Hgb 31.1 pg (27.0-32.0); Mean Corpuscular Volume 93.7 fL (80-94); Mean Platelet Vol. 11.3 fl (6.2-12.0); Platelet Count 153 K/mm3 (150-450); RBC Distribution Width CV 12.2 % (11.6-14.6); RBC Distribution Width SD 42.4 fl (35.1-43.9); Red Blood Count 3.99 M/mm3 (4.6-6.2); White Blood Count 18.5 K/mm3 (4.4-11.0)
[2024-07-04] MEDS: oxyCODONE 5 MG Tablet PO ×3 (06:30→17:36)
[2024-07-04 06:57] LABS: Anion Gap 8 (5-15); BUN 13 mg/dL (7-18); BUN/Creat Ratio 13.4 RATIO (10-20); Chloride 100 mmol/L (98-107); Creatinine, Serum 0.97 mg/dL (0.70-1.30); EST Glomerular Filtration Rate 95 mL/min (>60); Est Glom Filt Rate - Afr Amer 115 mL/min (>60); Estimated Creatinine Clearance 142.93 ml/min; Glucose 108 mg/dL (74-106); Potassium 3.7 mmol/L (3.5-5.1); Sodium Level 134 mmol/L (136-145)
[2024-07-04] MEDS: Ketorolac 15 MG/ML Vial IV ×3 (08:35→17:28)
[2024-07-04] MEDS: Doxycycline 100 MG in Dextrose 5%-Water (250mL Bag) 250 ML 250 MG IV (08:39)
--- NOTE | 2024-07-04 10:23 | PCM.PN.HOSP ---
Reason for Visit Reason for Visit: Diagnoses Cellulitis of right upper limb (07/02/24) Tachycardia, unspecified (07/02/24) Subjective Subjective Saw patient at bedside this morning. Patient unfortunately appeared similar to yesterday and the swelling and redness on his right elbow and arm actually appear slightly worse today than yesterday. Patient does report ongoing pain in the area, states the pain medications have been moderately helpful for him. He denies any fevers or chills but does state that he does not feel any better today than when he came in to the hospital. No other new concerns today. Objective Data Objective Data Vital Signs: Vital Signs Temp Pulse Resp BP Pulse Ox O2 Del Method 98.4 F 110 H 18 122/73 H 99 Room Air 07/04/24 08:44 07/04/24 08:44 07/04/24 08:44 07/04/24 08:44 07/04/24 08:44 07/04/24 08:45 Oxygen Delivery Method Room Air Weight: 121.563 kg Body Mass Index (BMI) 38.4 Intake & Output: Intake and Output for Last 24 Hours 07/02/24 07/03/24 07/04/24 23:59 23:59 23:59 Intake Total 3336 / 3336 4194.00 / 4594.00 700 / 700 Balance 3336 / 3336 4194.00 / 4594.00 700 / 700 Lab / Micro Data 07/04/24 05:23 07/04/24 05:23 Labs: Laboratory Results - last 24 hr 07/04/24 05:23: WBC 18.5 H, RBC 3.99 L, Hgb 12.4 L, Hct 37.4 L, MCV 93.7, MCH 31.1, MCHC 33.2, RDW Std Deviation 42.4, RDW Coeff of Tono 12.2, Plt Count 153, MPV 11.3, Sodium 134 L, Potassium 3.7, Chloride 100, Carbon Dioxide 26.0, Anion Gap 8, BUN 13, Creatinine 0.97, Estim Creat Clear Calc 142.93, Est GFR (MDRD) Af Amer 115, Est GFR (MDRD) Non-Af 95, BUN/Creatinine Ratio 13.4, Glucose 108 H, Calcium 9.0 Physical Exam Const alert, oriented x3 and no apparent distress Constitutional Narrative: Pleasant younger male, obese, mildly fatigued and flushed appearing, otherwise sitting up comfortably in bed, conversing normally, in no acute distress. Stable. General Appearance: cooperative and comfortable HEENT normocephalic, head/scalp atraumatic, hearing grossly normal bilaterally and nasal mucous membranes and turbinates normal Eyes PERRL, EOMs intact bilaterally and conjunctivae normal Neck full ROM Chest inspection of chest normal Resp normal respiratory effort, normal air movement, no use of accessory muscles and clear to auscultation bilaterally Cardio no murmurs and peripheral pulses 2+ throughout Cardio Narrative: Sinus tachycardia. GI normal to inspection, nondistended, normoactive bowel sounds, soft to palpation, non-tender and non-distended Back/Spine normal ROM Extremity Extremity Narrative: Significant erythema and swelling noted around the right elbow. Mild tenderness to palpation. No decreased range of movement at the elbow. Patient unfortunately with no improvement by hospital day 3 and arm appears slightly worse than on admission. Neuro moves all extremities and no focal motor deficits Speech: speech normal Psych mental status grossly normal Assessment & Plan Assessment/Plan (1) Cellulitis of right elbow: (2) Sinus tachycardia: PLAN: Plan Patient is a 33-year-old male who presented [facility] ED on 07/02/2024 with worsening right elbow pain and swelling. 1. Right arm cellulitis ? Presented with 2 to 3-day history of worsening right elbow pain and swelling with fevers. CT upper extremity showed diffuse subcutaneous swelling surrounding the distal portion of the right humerus and extending just below the right elbow but with no evidence of joint effusion, abscess remission or bony abnormality. Consistent with simple cellulitis, no concern for abscess or septic joint. Febrile, sinus tachycardia and leukocytosis on admit but no end organ dysfunction noted, did not meet sepsis criteria. Treated with IV Unasyn on admission but patient had minimal improvement on hospital day 2. Was switched to IV doxycycline to cover MRSA and other possible infections related to insect bites. However, continued to have no improvement on hospital day 3. Switched to IV vancomycin and Zosyn on 07/04. If patient is not improving tomorrow, recommend ID consult. Given 4 doses of IV Toradol on admit for pain and swelling with some improvement in pain. However, given no significant improvement in infection he has continued to have ongoing pain and swelling requiring doses of oxycodone and IV Dilaudid. Will give another 4 doses of IV Toradol through the morning of 07/05. Continue Tylenol and oxycodone as needed for further pain control. 2. Sinus tachycardia, improving ? Sinus tachycardia to the 130s noted on admission. Improved to the 110s with IV fluid resuscitation. Presumed secondary to acute infection. Remained mildly tachycardic to the low 100s on hospital day 2 with borderline blood pressure, given another IV fluid bolus. Remaining stable in sinus tachycardia in the low 100s on hospital day 3. He has gotten significant IV fluid resuscitation, would prefer to hold on further IV fluids and encourage p.o. intake but can consider further small IV fluid boluses as needed. 3. Obesity ? BMI 38 on admit. Encouraged lifestyle modifications. Complicates hospital course, care and prognosis. DVT prophylaxis: Low risk, ambulate CODE STATUS: Full code, verified Expected disposition: Home, 1 to 2 days Total clinical time spent by myself addressing the patient's medical issues, reviewing all the data, and collaborating with patient's care team: 35 minutes. Charges/Coding Visit Charges Inpatient E&M: 10957 Subs Hosp L2
[2024-07-04] MEDS: Vancomycin HCl 2,000 MG in 0.9% Normal Saline (500mL Bag) 500 ML 250 MG IV (11:04)
--- NOTE | 2024-07-04 12:20 | PCM.RX.CS ---
Consult Antibiotic Management Pharmacy has been consulted to manage selected antibiotic: Vancomycin Type of Intervention Type of Consult: New start Suspected Infection Suspected Infection: Skin/Soft tissue Labs Labs: Sodium 134 mmol/L (136-145) L 07/04/24 05:23 Potassium 3.7 mmol/L (3.5-5.1) 07/04/24 05:23 Chloride 100 mmol/L (98-107) 07/04/24 05:23 Carbon Dioxide 26.0 mmol/L (21.0-32.0) 07/04/24 05:23 Anion Gap 8 (5-15) 07/04/24 05:23 BUN 13 mg/dL (7-18) 07/04/24 05:23 Creatinine 0.97 mg/dL (0.70-1.30) 07/04/24 05:23 Est GFR (MDRD) Af Amer 115 mL/min (>60) 07/04/24 05:23 Est GFR (MDRD) Non-Af 95 mL/min (>60) 07/04/24 05:23 BUN/Creatinine Ratio 13.4 RATIO (10-20) 07/04/24 05:23 Glucose 108 mg/dL (74-106) H 07/04/24 05:23 Pharmacy Plan for Drug Dosing Pharmacy Plan for Drug Dosing: NEW START IV VANCOMYCIN Consulting Physician: Gerda Indication: cellulitis Goal Trough: 15-20mg/dL SrCr: 0.97mg/dl CrCl: 142 ml/min Comments: loading dose of 2000mg given 07/04 @ 1104 Vancomycin Dose: Will start 1500mg Q8 (@1900) and get a trough prior to the 4th dose per policy. Pending Level: 07/05/24 @ 1030 Pharmacy Service will continue to monitor and adjust dosing as required.
[2024-07-04] MEDS: Ondansetron 4 MG/2 ML Vial IV (14:37)
[2024-07-04] MEDS: Piperacil/Tazobactam 3.375 GM in 0.9% Normal Saline (50mL MB+) 50 ML IV ×2 (14:40→21:44)
--- NOTE | 2024-07-04 16:33 | VDUE_ITS ---
Reason For Study: Right arm swelling Right Proximal Right jugular vein is spontaneous, widely patent, phasic, with no intraluminal echogenicity noted. Right subclavian vein is spontaneous, widely patent, phasic, with no intraluminal echogenicity noted. Right Lower Arm Right radial vein is compressible. Right ulnar vein is compressible. Right Arm Right axillary vein is spontaneous, patent, phasic, competent, compressible and demonstrates augmentation. Right brachial vein is compressible. Right cephalic vein is compressible. Right basilic vein is compressible. Patient Safety Preliminary report printed to [facility]. VL/Venous Duplex US, Unilateral Interpretation Summary Deep veins of the right upper extremity are patent and compressible segmentally . There is no evidence of deep vein thrombosis. Superficial veins of the right upper extremity are patent and compressible segm entally. There is no evidence of superficial vein thrombosis. Ordering Physician: Lisandro Lorenz Performed By: Erna Dietrich RVT ???
[2024-07-04 17:02] LABS: Procalcitonin 6.95 ng/mL (0.00-0.09)
[2024-07-04 17:09] LABS: Erythrocyte Sedimentation Rate 67 mm/hr (0-20)
[2024-07-04] MEDS: Vancomycin HCl 1,500 MG in 0.9% Normal Saline (500mL Bag) 500 ML 250 MG IV (19:21)
[2024-07-05] MEDS: Ketorolac 15 MG/ML Vial IV (00:01)
[2024-07-05] MEDS: 0.9% Saline Lock 10 ML Syringe IV ×4 (00:05→22:33)
[2024-07-05] MEDS: oxyCODONE 5 MG Tablet PO ×4 (00:05→20:27)
[2024-07-05 02:45] VITALS: BP 123/65; PULSE 105; RESP 18; TEMP 37.4; O2SAT 97
[2024-07-05] MEDS: Vancomycin HCl 1,500 MG in 0.9% Normal Saline (500mL Bag) 500 ML 250 MG IV ×3 (03:00→19:04)
[2024-07-05] MEDS: Piperacil/Tazobactam 3.375 GM in 0.9% Normal Saline (50mL MB+) 50 ML IV ×3 (05:34→22:33)
[2024-07-05] MEDS: Acetaminophen 325 MG Tablet 650 MG PO ×3 (07:01→20:27)
[2024-07-05 07:13] LABS: Hemoglobin 12.3 g/dL (13.0-16.5); Mean Corp Hgb Conc 33.2 g/dL (32-36); Mean Corpuscular Volume 93.2 fL (80-94); Mean Platelet Vol. 10.7 fl (6.2-12.0); Platelet Count 169 K/mm3 (150-450); RBC Distribution Width CV 12.6 % (11.6-14.6); RBC Distribution Width SD 43.5 fl (35.1-43.9); Red Blood Count 3.97 M/mm3 (4.6-6.2); White Blood Count 15.9 K/mm3 (4.4-11.0)
[2024-07-05 07:46] LABS: Anion Gap 7 (5-15); BUN 11 mg/dL (7-18); BUN/Creat Ratio 12.1 RATIO (10-20); Calcium,Total 8.9 mg/dL (8.5-10.1); Chloride 103 mmol/L (98-107); Creatinine, Serum 0.91 mg/dL (0.70-1.30); EST Glomerular Filtration Rate 102 mL/min (>60); Est Glom Filt Rate - Afr Amer 124 mL/min (>60); Estimated Creatinine Clearance 152.35 ml/min; Glucose 98 mg/dL (74-106); Potassium 3.3 mmol/L (3.5-5.1); Sodium Level 135 mmol/L (136-145)
[2024-07-05 08:02] VITALS: BP 117/68; PULSE 96; RESP 20; TEMP 36.4; O2SAT 94
[2024-07-05 10:39] VITALS: O2SAT 96
[2024-07-05 10:45] LABS: Vancomycin, Trough Level 10.3 ug/mL (5.0-15.0)
--- NOTE | 2024-07-05 11:07 | PCM.RX.CS ---
Consult Antibiotic Management Pharmacy has been consulted to manage selected antibiotic: Vancomycin Type of Intervention Type of Consult: Follow-up Labs Labs: Sodium 135 mmol/L (136-145) L 07/05/24 06:21 Potassium 3.3 mmol/L (3.5-5.1) L 07/05/24 06:21 Chloride 103 mmol/L (98-107) 07/05/24 06:21 Carbon Dioxide 25.0 mmol/L (21.0-32.0) 07/05/24 06:21 Anion Gap 7 (5-15) 07/05/24 06:21 BUN 11 mg/dL (7-18) 07/05/24 06:21 Creatinine 0.91 mg/dL (0.70-1.30) 07/05/24 06:21 Est GFR (MDRD) Af Amer 124 mL/min (>60) 07/05/24 06:21 Est GFR (MDRD) Non-Af 102 mL/min (>60) 07/05/24 06:21 BUN/Creatinine Ratio 12.1 RATIO (10-20) 07/05/24 06:21 Glucose 98 mg/dL (74-106) 07/05/24 06:21 Vancomycin Trough 10.3 ug/mL (5.0-15.0) 07/05/24 10:10 Goal Trough Goal Trough: 15-20 mcg/mL Pharmacy Plan for Drug Dosing Pharmacy Plan for Drug Dosing: VANCOMYCIN LEVEL RECEIVED Current Vancomycin Dose: 1500mg IV Q8h Number of Doses Received: 3 (loading + 2 scheduled doses) Vancomycin Level: 10.3 Hours Since Last Dose: 7.25hr Renal Function: 0.91 Renal Function Trend: stable Lab/Micro: BCx pending Vancomycin Plan/Comments: Patient had a trough drawn which resulted in a value of 10.3 (goal 15-20). patient's level is currently not within therapeutic goal. Although not in goal, patient is on a larger dose of vancomycin every 8 hours, so hesitant to increase dose further at this time, as pt will likely accumulate more vancomycin. WBC count is trending down, pt has been afebrile >24hr. Will continue current dose of 1500mg IV Q8h and recheck a trough in 24hrs. If trough still below goal after recheck, will consider increasing dose at that time. Pending Level: 07/06/24 @1030 Pharmacy Service will continue to monitor and adjust dosing as required.
[2024-07-05 11:26] LABS: Pathologist Review Reviewed
--- NOTE | 2024-07-05 12:00 | PN.HOSP_ITS ---
Reason for Visit Reason for Visit: Diagnoses Cellulitis of right upper limb (07/02/24) Tachycardia, unspecified (07/02/24) Subjective Subjective Right arm worse with increasing erythema and edema despite the antibiotics. Objective Data Objective Data Vital Signs: Vital Signs Temp Pulse Resp BP Pulse Ox O2 Del Method 36.4 C L 96 20 H 117/68 96 Room Air 07/05/24 08:02 07/05/24 08:02 07/05/24 08:02 07/05/24 08:02 07/05/24 10:39 07/05/24 10:39 Oxygen Delivery Method Room Air Weight: 121.563 kg Body Mass Index (BMI) 38.4 Intake & Output: Intake and Output for Last 24 Hours 07/03/24 07/04/24 07/05/24 23:59 23:59 23:59 Intake Total 4194.00 / 4594.00 4080 / 4780 193 / 1930 Balance 4194.00 / 4594.00 4080 / 4780 1929 / 1929 Lab / Micro Data 07/05/24 06:26 07/05/24 06:21 Labs: Laboratory Results - last 24 hr 07/02/24 07:55: Diff Path Review Reviewed 07/04/24 05:23: ESR 67 H, C-React Prot Ext Range 421.00 H, Procalcitonin 6.95 H 07/05/24 06:21: Sodium 135 L, Potassium 3.3 L, Chloride 103, Carbon Dioxide 25.0, Anion Gap 7, BUN 11, Creatinine 0.91, Estim Creat Clear Calc 152.35, Est GFR (MDRD) Af Amer 124, Est GFR (MDRD) Non-Af 102, BUN/Creatinine Ratio 12.1, Glucose 98, Calcium 8.9 07/05/24 06:26: WBC 15.9 H, RBC 3.97 L, Hgb 12.3 L, Hct 37.0 L, MCV 93.2, MCH 31.0, MCHC 33.2, RDW Std Deviation 43.5, RDW Coeff of Tono 12.6, Plt Count 169, MPV 10.7 07/05/24 10:10: Vancomycin Trough 10.3 Physical Exam Const Constitutional Narrative: Nontoxic-appearing. Afebrile. HEENT head/scalp atraumatic and moist oral mucous membranes Resp normal respiratory effort and no retractions Extremity Extremity Narrative: Right arm much larger than his left with noted swelling without any definitive induration or compromise digits. Erythema extending beyond the areas of demarcation. Neuro Sensorium / Orientation: awake and alert Psych affect normal Assessment & Plan Assessment/Plan (1) Cellulitis of right elbow: (2) Sinus tachycardia: PLAN: Plan Right arm cellulitis * Initially began around his elbow but has progressed involving his whole arm and his right arm has gotten swollen. This is transpired while he has been in the hospital despite antibiotics with pip-tazo and vancomycin. * Repeat CAT scan ordered to see if any development of any abscess. Clinically does not suggest necrotizing fasciitis at this point. Recommended keeping his arm elevated and ice packs as needed. Follow-up duplex of lower extremity. Unclear if he has underlying SVT but clinically there is nothing to suggest at this time other than the erythema and swelling. Will consult infectious disease for further recommendations. Sinus tachycardia: * Likely reactive given the underlying infection. Obesity class II: Complicates care and recovery. DVT prophylaxis: Low risk, ambulate CODE STATUS: Full code, verified Expected disposition: To be determined. Patient and the patient's overall clinical response Discussed with the patient's significant other at bedside. Charges/Coding Visit Charges Inpatient E&M: 22566 Subs Hosp L2
[2024-07-05 12:19] VITALS: BP 124/87; PULSE 108; RESP 18; TEMP 37.1; O2SAT 99
[2024-07-05] MEDS: Ondansetron 4 MG/2 ML Vial IV (14:15)
--- NOTE | 2024-07-05 15:21 | CT_ITS ---
EXAM: CT RIGHT UPPER EXTREMITY WITH INTRAVENOUS CONTRAST CLINICAL INDICATION: right arm cellulitis TECHNIQUE: Helically acquired images were obtained of the right upper extremity with intravenous contrast. 2-D reformats were performed by the technologist. This CT exam was performed using one or more of the following dose reduction techniques: automated exposure control, adjustment of the mA and/or kV according to patient size, and/or use of iterative reconstruction technique. CONTRAST: IV 100mL Isovue-300 RADIATION DOSE: CTDIvol = 24.58 mGy, DLP = 1298.13 mGy-cm COMPARISON: 07/02/2024 FINDINGS: BONES/JOINTS: Bones and joints are unremarkable. No acute fracture. No subluxation. Normal alignment. No sclerotic or destructive changes. SOFT TISSUES: Marked worsening of diffuse edema throughout the subcutaneous tissues, skin thickening, and probable hypervascularity of the visualized lower arm, around the elbow, entire forearm and into the hand. There is no specific focal, marginated fluid collection to suggest abscess. All visualized muscle bundles appear normal. No radiopaque foreign body. CT/Extremity Upper WITH Contrast IMPRESSION: Marked worsening of what appears to be extensive diffuse circumferential edema, most likely from cellulitis without a definite focal drainable fluid collection.. Electronically Signed: Jovan Ortiz MD at 19:03 EDT ,
[2024-07-05 18:00] VITALS: BP 110/70; PULSE 97; RESP 16; TEMP 36.7; O2SAT 97
[2024-07-05] MEDS: Ensure Plus High Protein 120 ML LIQUID PO (18:29)
[2024-07-05 22:19] VITALS: BP 101/58; PULSE 109; RESP 16; TEMP 36.6; O2SAT 97
[2024-07-06] MEDS: Vancomycin HCl 1,500 MG in 0.9% Normal Saline (500mL Bag) 500 ML 250 MG IV (02:42)
[2024-07-06] MEDS: oxyCODONE 5 MG Tablet PO ×4 (02:48→22:59)
[2024-07-06] MEDS: Acetaminophen 325 MG Tablet 650 MG PO ×4 (02:48→22:59)
[2024-07-06 03:41] VITALS: BP 129/75; PULSE 92; RESP 16; TEMP 36.5; O2SAT 96
[2024-07-06 03:52] VITALS: BP 129/75; PULSE 92; RESP 16; TEMP 36.5; O2SAT 96
[2024-07-06] MEDS: Piperacil/Tazobactam 3.375 GM in 0.9% Normal Saline (50mL MB+) 50 ML IV ×3 (06:17→22:59)
--- NOTE | 2024-07-06 08:44 | PN.HOSP_ITS ---
Reason for Visit Reason for Visit: Diagnoses Cellulitis of right upper limb (07/02/24) Tachycardia, unspecified (07/02/24) Subjective Subjective slight improvement of right arm, though still swollen Objective Data Objective Data Vital Signs: Vital Signs Temp Pulse Resp BP Pulse Ox O2 Del Method 36.5 C L 92 16 129/75 H 96 Room Air 07/06/24 03:52 07/06/24 03:52 07/06/24 03:52 07/06/24 03:52 07/06/24 03:52 07/06/24 03:55 Oxygen Delivery Method Room Air Weight: 121.563 kg Body Mass Index (BMI) 38.4 Intake & Output: Intake and Output for Last 24 Hours 07/04/24 07/05/24 07/06/24 23:59 23:59 23:59 Intake Total 4080 / 4780 3440.0 / 3440.0 580 / 580 Balance 4080 / 4780 3440.0 / 3440.0 580 / 580 Lab / Micro Data 07/06/24 10:18 07/06/24 10:18 Labs: Laboratory Results - last 24 hr 07/02/24 07:55: Diff Path Review Reviewed 07/05/24 10:10: Vancomycin Trough 10.3 Radiography Diagnostic Testing: Radiology Impression Venous Doppler Study 07/04/24 16:33 Interpretation Summary Deep veins of the right upper extremity are patent and compressible segmentally. There is no evidence of deep vein thrombosis. Superficial veins of the right upper extremity are patent and compressible segmentally. There is no evidence of superficial vein thrombosis. Ordering Physician: Lisandro Lorenz Performed By: Erna Dietrich RVT ??? Upper Extremity CT 07/05/24 15:21 IMPRESSION: Marked worsening of what appears to be extensive diffuse circumferential edema, most likely from cellulitis without a definite focal drainable fluid collection.. Electronically Signed: Jovan Ortiz MD at 19:03 EDT , Physical Exam Const alert and no apparent distress HEENT head/scalp atraumatic Resp normal respiratory effort and no retractions Extremity Extremity Narrative: Right upper extremity swelling. Perhaps slightly less than on the . Erythema of the right arm also appears to be less intense today and more withdrawn from previous. Only able to bend the arm to about 90 degrees. No fluctuance appreciated. Psych affect normal Assessment & Plan Assessment/Plan (1) Cellulitis of right elbow: (2) Sinus tachycardia: PLAN: Plan Right arm cellulitis * Initially began around his elbow but has progressed involving his whole arm and his right arm has gotten swollen. This is transpired while he has been in the hospital despite antibiotics with pip-tazo and vancomycin. Today, his arm perhaps looks slightly better though not significantly. * Repeat CAT scan showed a worsening edema without definitive focal drainable fluid collection * No evidence of SVT on the right upper extremity. * Elevate extremity use ice packs * Seen by infectious disease, who is recommending Ortho evaluation. Sinus tachycardia: * Likely reactive given the underlying infection. Obesity class II: Complicates care and recovery. DVT prophylaxis: Low risk, ambulate CODE STATUS: Full code, verified Expected disposition: To be determined. Patient and the patient's overall clinical response Charges/Coding Visit Charges Inpatient E&M: 12810 Subs Hosp L2
[2024-07-06 10:00] VITALS: BP 132/87; PULSE 98; RESP 16; TEMP 37.1; O2SAT 96
[2024-07-06] MEDS: Ondansetron 4 MG/2 ML Vial IV ×2 (10:03→18:20)
[2024-07-06 10:37] LABS: Basophil# 0.13 X10^3/uL; Eosinophil# 0.21 X10^3/uL; Hematocrit 34.6 % (40-54); Hemoglobin 11.5 g/dL (13.0-16.5); Lymphocyte # 1.18 X10^3/ul (0.83-4.51); Mean Corp Hgb Conc 33.2 g/dL (32-36); Mean Corpuscular Hgb 30.5 pg (27.0-32.0); Mean Corpuscular Volume 91.8 fL (80-94); Mean Platelet Vol. 10.2 fl (6.2-12.0); Monocyte# 1.58 X10^3/uL; NRBC Flagged by Analyzer 0 % (0-5); Neutrophil # 11.91 X10^3/uL (2.7-7.7); POSITIVE DIFFERENTIAL YES; Platelet Count 238 K/mm3 (150-450); RBC Distribution Width CV 13.2 % (11.6-14.6); RBC Distribution Width SD 44.4 fl (35.1-43.9); Red Blood Count 3.77 M/mm3 (4.6-6.2); White Blood Count 15.6 K/mm3 (4.4-11.0)
[2024-07-06 10:47] LABS: Differential Indicated SCAN CRITERIA MET
[2024-07-06 11:06] LABS: Anion Gap 6 (5-15); BUN 8 mg/dL (7-18); BUN/Creat Ratio 10.9 RATIO (10-20); Calcium,Total 8.9 mg/dL (8.5-10.1); Chloride 107 mmol/L (98-107); Creatinine, Serum 0.73 mg/dL (0.70-1.30); EST Glomerular Filtration Rate 132 mL/min (>60); Est Glom Filt Rate - Afr Amer 159 mL/min (>60); Estimated Creatinine Clearance 189.91 ml/min; Glucose 99 mg/dL (74-106); Sodium Level 138 mmol/L (136-145)
[2024-07-06 11:08] LABS: Vancomycin, Trough Level 12.9 ug/mL (5.0-15.0)
--- NOTE | 2024-07-06 11:24 | PCM.RX.CS ---
Consult Antibiotic Management Pharmacy has been consulted to manage selected antibiotic: Vancomycin Type of Intervention Type of Consult: Follow-up Suspected Infection Suspected Infection: Skin/Soft tissue Labs Labs: Sodium 138 mmol/L (136-145) 07/06/24 10:18 Potassium 3.0 mmol/L (3.5-5.1) L 07/06/24 10:18 Chloride 107 mmol/L (98-107) 07/06/24 10:18 Carbon Dioxide 25.0 mmol/L (21.0-32.0) 07/06/24 10:18 Anion Gap 6 (5-15) 07/06/24 10:18 BUN 8 mg/dL (7-18) 07/06/24 10:18 Creatinine 0.73 mg/dL (0.70-1.30) 07/06/24 10:18 Est GFR (MDRD) Af Amer 159 mL/min (>60) 07/06/24 10:18 Est GFR (MDRD) Non-Af 132 mL/min (>60) 07/06/24 10:18 BUN/Creatinine Ratio 10.9 RATIO (10-20) 07/06/24 10:18 Glucose 99 mg/dL (74-106) 07/06/24 10:18 Vancomycin Trough 12.9 ug/mL (5.0-15.0) 07/06/24 10:18 Dosing Weight Weight used for dosin kg Goal Trough Goal Trough: 15-20 mcg/mL Pharmacy Plan for Drug Dosing Pharmacy Plan for Drug Dosing: VANCOMYCIN LEVEL RECEIVED Current Vancomycin Dose: 1500mg q8h (03,11,19) Number of Doses Received: x1 2000mg loading dose, x5 1500mg doses Vancomycin Level: 12.9 (drawn 07/06/24 at 1018) Hours Since Last Dose: approximately 7.5 hours since last 1500mg dose administered 07/06/24 at 0242 Renal Function: SrCr 0.73 Renal Function Trend: SrCr improving (was 0.91) Lab/Micro: Vancomycin Plan/Comments: resulted trough of 12.9 is below the ordered goal trough range of 15-20. pt is on a higher dose at 1500mg q8h, hesitant to increase dose. per physician progress note, pt arm is swelling since hospital admission. due to this, recommend increasing dose to 1750mg q8h. checking trough prior to the 4th dose Pending Level: 07/07/24 at 1100 Pharmacy Service will continue to monitor and adjust dosing as required. Follow-Up Labs Follow-Up Labs: Trough: Vancomycin (07/07/24 at 1100)
[2024-07-06] MEDS: Vancomycin HCl 1,750 MG in 0.9% Normal Saline (500mL Bag) 500 ML 250 MG IV ×2 (11:33→19:51)
--- NOTE | 2024-07-06 11:34 | CON.PCM.ID_ITS ---
Assessment & Plan Assessment/Plan (1) Cellulitis of right elbow: PLAN: Wbc is improved, CT showed no abscess. On iv abx since 07/02 without much improvement in symptoms. Recommend ortho eval. Keep vanc/zosyn for now. Will follow, thank you, d/w Dr. Hope HPI Consult Data Date of Consult: 07/06/24 HPI Narrative Reason for Consultation: cellulitis HPI Narrative: MARIO MICHAUD, is a 33 M who presented 07/02 with progressive R elbow pain, swelling, redness. Got mosquito bites the weekend prior, then fever started 06/28, then elbow inflammation started 06/30. No known inciting event. No drainage. No prior elbow surgery. Came to ED, admitted on unasyn, then abx broadened to vanc/zosyn. Slightly better today with elevation but still diffuse soreness, redness, and swelling. Full ROS performed and neg except as noted above. PFSH Medical History Hypertension Smoker Home Medications ?Medication ?Instructions ?Recorded ?Last Taken ?Type ibuprofen 400 mg tablet 400 mg PO DAILY 01/23/23 07/02/24 History Allergy/AdvReac Type Severity Reaction Status Date / Time No Known Allergies Allergy Verified 07/02/24 07:58 Social History Smoking Status: Current every day smoker tobacco type: e-cigarettes alcohol intake: current alcohol intake frequency: a few times a week Physical Exam Const alert, oriented x3 and no apparent distress General Appearance: cooperative HEENT normocephalic and head/scalp atraumatic Eyes PERRL and EOMs intact bilaterally Neck supple and No nodes Resp normal air movement and clear to auscultation bilaterally Cardio regular rate and regular rhythm GI soft to palpation, non-tender and non-distended Extremity General Extremity: edema Skin Skin Narrative: RUE diffuse inflammation, no drainage Neuro CN's II-XII intact bilaterally Lab / Micro Data Attestation: I reviewed the patient's lab results. 07/06/24 10:18 07/06/24 10:18 Labs: Laboratory Results - last 24 hr 07/06/24 10:18: WBC 15.6 H, RBC 3.77 L, Hgb 11.5 L, Hct 34.6 L, MCV 91.8, MCH 30.5, MCHC 33.2, RDW Std Deviation 44.4 H, RDW Coeff of Tono 13.2, Plt Count 238, MPV 10.2, Immature Gran % (Auto) 3.700 H, Neut % (Auto) 76.5 H, Lymph % (Auto) 7.6 L, [place] % (Auto) 10.1 H, Eos % (Auto) 1.3, Baso % (Auto) 0.8, Absolute Neuts (auto) 11.9 H, Absolute Lymphs (auto) 1.18, Nucleated RBC % 0, Sodium 138, P otassium 3.0 L, Chloride 107, Carbon Dioxide 25.0, Anion Gap 6, BUN 8, Creatinine 0.73, Estim Creat Clear Calc 189.91, Est GFR (MDRD) Af Amer 159, Est GFR (MDRD) Non-Af 132, BUN/Creatinine Ratio 10.9, Glucose 99, Calcium 8.9, Vancomycin Trough 12.9 Imaging Radiology Impression Venous Doppler Study 07/04/24 16:33 Interpretation Summary Deep veins of the right upper extremity are patent and compressible segmentally. There is no evidence of deep vein thrombosis. Superficial veins of the right upper extremity are patent and compressible segmentally. There is no evidence of superficial vein thrombosis. Ordering Physician: Lisandro Lorenz Performed By: Erna Dietrich, T ??? Upper Extremity CT 07/05/24 15:21 IMPRESSION: Marked worsening of what appears to be extensive diffuse circumferential edema, most likely from cellulitis without a definite focal drainable fluid collection.. Electronically Signed: Jovan Ortiz MD at 19:03 EDT ,
[2024-07-06 12:17] LABS: Basophil 2 % (0-1); Eosinophil 1 % (0-5); Lymphocyte 8 % (19-41); Metamyelocyte 1 % (0-1); Monocyte 3 % (0-10); Myelocyte 1 % (0-0); Neutrophil-Segmented 84 % (47-70); Platelet Estimate ADEQUATE (ADEQ); Total Cells Counted 100 (MANUAL DIFF)
[2024-07-06 12:18] LABS: Anisocytosis 1+; Platelet Morphology LARGE
[2024-07-06 12:19] LABS: Scan Smear per Review Criteria MANUAL DIFF
[2024-07-06 12:20] LABS: Absolute Neutrophil Count 13.1 X10^3/uL (2.0-7.7)
[2024-07-06] MEDS: Potassium Chloride Oral Tablet 20 MEQ 60 MEQ PO (15:21)
--- NOTE | 2024-07-06 15:51 | PCM.CONS.GEN ---
Assessment & Plan Assessment/Plan (1) Cellulitis of right elbow: PLAN: Plan Extensive cellulitis right upper extremity and responding now to antibiotics managed by infectious disease. Serial CT scans did not demonstrate any abscess formation there is no sign of septic joint or septic bursitis recommend continued IV antibiotics until resolution. If condition changes I am happy to reevaluate. HPI Consult Data Date of Consult: 07/06/24 HPI Narrative HPI Narrative: MARIO MICHAUD, is a 33 M who presents on 07/02/2024 with swelling and redness of his right upper extremity. No trauma or inciting event. Diagnosed with cellulitis was admitted for IV antibiotics he has had 2 CT scans of the right upper extremity neither of which demonstrate any abscess. He has had no signs of septic bursitis or septic elbow joint. He is now responding to antibiotics he is afebrile his swelling is dramatically improved. He does have pain but it is improving. He is currently on vancomycin and Zosyn managed by infectious disease. [facility] Medical History Hypertension Smoker Home Medications ?Medication ?Instructions ?Recorded ?Last Taken ?Type ibuprofen 400 mg tablet 400 mg PO DAILY 01/23/23 07/02/24 History Allergy/AdvReac Type Severity Reaction Status Date / Time No Known Allergies Allergy Verified 07/02/24 07:58 Social History Smoking Status: Current every day smoker tobacco type: e-cigarettes alcohol intake: current alcohol intake frequency: a few times a week Physical Exam Const alert, oriented x3 and no apparent distress General Appearance: cooperative Extremity Extremity Narrative: Cellulitis of the right upper extremity erythema is demarcated his swelling is present but is dramatically improved according to patient. He has no pain with elbow range of motion wrist range of motion he has no sign of septic bursitis of the elbow he has no crepitation with palpation he is able to flex and extend all of the digits the compartments are soft he is neurovascular intact he has no skin breakdown. Lab / Micro Data 07/06/24 10:18 07/06/24 10:18 Labs: Laboratory Results - last 24 hr 07/06/24 10:18: WBC 15.6 H, RBC 3.77 L, Hgb 11.5 L, Hct 34.6 L, MCV 91.8, MCH 30.5, MCHC 33.2, RDW Std Deviation 44.4 H, RDW Coeff of Tono 13.2, Plt Count 238, MPV 10.2, Immature Gran % (Auto) [employer] G[employer]MENT ASSEMBLER, Neut % (Auto) [employer] GARMENT ASSEMBLER, Lymph % (Auto) [employer] GARMENT ASSEMBLER, [place] % (Auto) SURG[employer] GARMENT ASSEMBLER, Eos % (Auto) [employer] GARMENT ASSEMBLER, Baso % (Auto) [employer] GARMENT ASSEMBLER, Absolute Neuts (auto) 13.1 H, Absolute Lymphs (auto) 1.20, Total Counted 100, Neutrophils % (Manual) 84 H, Lymphocytes % (Manual) 8 L, Monocytes % (Manual) 3, Eosinophils % (Manual) 1, Basophils % (Manual) 2 H, Metamyelocytes % 1, Myelocytes % 1 H, Nucleated RBC % 0, Diff Path Review May foll, Platelet Estimate ADEQUATE, Plt Morphology Comment LARGE, Anisocytosis 1+, Sodium 138, Potassium 3.0 L, Chloride 107, Carbon Dioxide 25.0, Anion Gap 6, BUN 8, Creatinine 0.73, Estim Creat Clear Calc 189.91, Est GFR (MDRD) Af Amer 159, Est GFR (MDRD) Non-Af 132, BUN/Creatinine Ratio 10.9, Glucose 99, Calcium 8.9, Vancomycin Trough 12.9 Imaging Radiology Impression Venous Doppler Study 07/04/24 16:33 Interpretation Summary Deep veins of the right upper extremity are patent and compressible segmentally. There is no evidence of deep vein thrombosis. Superficial veins of the right upper extremity are patent and compressible segmentally. There is no evidence of superficial vein thrombosis. Ordering Physician: Lisandro Lorenz Performed By: Erna Dietrich, RVT ??? Upper Extremity CT 07/05/24 15:21 IMPRESSION: Marked worsening of what appears to be extensive diffuse circumferential edema, most likely from cellulitis without a definite focal drainable fluid collection.. Electronically Signed: Jovan Ortiz MD at 19:03 EDT ,
[2024-07-06 16:00] VITALS: BP 123/63; PULSE 94; RESP 16; TEMP 36.6; O2SAT 97
[2024-07-06] MEDS: 0.9% Saline Lock 10 ML Syringe IV ×2 (18:20→23:03)
[2024-07-06 22:04] VITALS: BP 121/80; PULSE 92; RESP 16; TEMP 36.6; O2SAT 99
[2024-07-07 07:05] LABS: Hematocrit 32.2 % (40-54); Hemoglobin 10.6 g/dL (13.0-16.5); Mean Corp Hgb Conc 32.9 g/dL (32-36); Mean Corpuscular Volume 94.2 fL (80-94); Mean Platelet Vol. 10.5 fl (6.2-12.0); POSITIVE COUNT YES; POSITIVE MORPHOLOGY YES; Platelet Count 270 K/mm3 (150-450); RBC Distribution Width CV 13.5 % (11.6-14.6); RBC Distribution Width SD 46.8 fl (35.1-43.9); Red Blood Count 3.42 M/mm3 (4.6-6.2); White Blood Count 12.7 K/mm3 (4.4-11.0)
[2024-07-07 07:20] LABS: Differential Indicated MANUAL DIFF
[2024-07-07 07:43] LABS: Anion Gap 5 (5-15); BUN 5 mg/dL (7-18); BUN/Creat Ratio 8.6 RATIO (10-20); Calcium,Total 7.5 mg/dL (8.5-10.1); Chloride 113 mmol/L (98-107); Creatinine, Serum 0.58 mg/dL (0.70-1.30); EST Glomerular Filtration Rate 171 mL/min (>60); Est Glom Filt Rate - Afr Amer 207 mL/min (>60); Estimated Creatinine Clearance 239.03 ml/min; Glucose 94 mg/dL (74-106); Magnesium 1.8 mg/dL (1.6-2.6); Sodium Level 143 mmol/L (136-145)
[2024-07-07 08:02] LABS: Eosinophil 2 % (0-5); Lymphocyte 9 % (19-41); Monocyte 3 % (0-10); Myelocyte 2 % (0-0); Neutrophil-Band 8 % (0-5); Neutrophil-Segmented 76 % (47-70); Total Cells Counted 100 (MANUAL DIFF)
[2024-07-07 08:03] LABS: Platelet Estimate ADEQUATE (ADEQ); Red Cell Morphology NORM C+C NORMAL (NORM C&C)
[2024-07-07 08:04] LABS: Absolute Lymphocyte Count 0.38 X10^3/uL (0.83-4.51); Absolute Neutrophil Count 10.7 X10^3/uL (2.0-7.7)
[2024-07-07 09:00] VITALS: BP 130/90; PULSE 77; RESP 16; TEMP 36.1; O2SAT 98
--- NOTE | 2024-07-07 09:17 | PN.HOSP_ITS ---
Reason for Visit Reason for Visit: Diagnoses Cellulitis of right upper limb (07/02/24) Tachycardia, unspecified (07/02/24) Subjective Subjective Improved. Objective Data Objective Data Vital Signs: Vital Signs Temp Pulse Resp BP Pulse Ox O2 Del Method 36.1 C L 77 16 130/90 H 98 Room Air 07/07/24 09:00 07/07/24 09:00 07/07/24 09:00 07/07/24 09:00 07/07/24 09:00 07/07/24 09:00 Oxygen Delivery Method Room Air Weight: 121.563 kg Body Mass Index (BMI) 38.4 Intake & Output: Intake and Output for Last 24 Hours 07/05/24 07/06/24 07/07/24 23:59 23:59 23:59 Intake Total 3440.0 / 3440.0 1750 / 1750 50 / 50 Balance 3440.0 / 3440.0 1750 / 1750 50 / 50 Lab / Micro Data 07/07/24 05:47 07/07/24 05:47 Labs: Laboratory Results - last 24 hr 07/06/24 10:18: WBC 15.6 H, RBC 3.77 L, Hgb 11.5 L, Hct 34.6 L, MCV 91.8, MCH 30.5, MCHC 33.2, RDW Std Deviation 44.4 H, RDW Coeff of Tono 13.2, Plt Count 238, MPV 10.2, Immature Gran % (Auto) [employer], Neut % (Auto) [employer], Lymph % (Auto) [employer], [place] % (Auto) [employer], Eos % (Auto) [employer], Baso % (Auto) [employer], Absolute Neuts (auto) 13.1 H, Absolute Lymphs (auto) 1.20, Total Counted 100, Neutrophils % (Manual) 84 H, L ymphocytes % (Manual) 8 L, Monocytes % (Manual) 3, Eosinophils % (Manual) 1, B asophils % (Manual) 2 H, Metamyelocytes % 1, Myelocytes % 1 H, Nucleated RBC % 0, Diff Path Review May foll, Platelet Estimate ADEQUATE, Plt Morphology Comment LARGE, Anisocytosis 1+, Sodium 138, Potassium 3.0 L, Chloride 107, Carbon Dioxide 25.0, Anion Gap 6, BUN 8, Creatinine 0.73, Estim Creat Clear Calc 189.91, Est GFR (MDRD) Af Amer 159, Est GFR (MDRD) Non-Af 132, BUN/Creatinine Ratio 10.9, Glucose 99, Calcium 8.9, Vancomycin Trough 12.9 07/07/24 05:47: WBC 12.7 H, RBC 3.42 L, Hgb 10.6 L, Hct 32.2 L, MCV 94.2 H, MCH 31.0, MCHC 32.9, RDW Std Deviation 46.8 H, RDW Coeff of Tono 13.5, Plt Count 270, MPV 10.5, Neut % (Auto) Not Reportable, Absolute Neuts (auto) 10.7 H, Absolute Lymphs (auto) 0.38 L, Total Counted 100, Neutrophils % (Manual) 76 H, Band Neutrophils % 8 H, Lymphocytes % (Manual) 9 L, Monocytes % (Manual) 3, Eosinophils % (Manual) 2, Myelocytes % 2 H, Diff Path Review May foll, Platelet Estimate ADEQUATE, RBC Morphology NORM C+C, Sodium 143, Potassium 3.0 L, C hloride 113 H, Carbon Dioxide 25.0, Anion Gap 5, BUN 5 L, Creatinine 0.58 L, Estim Creat Clear Calc 239.03, Est GFR (MDRD) Af Amer 207, Est GFR (MDRD) Non-Af 171, BUN/Creatinine Ratio 8.6 L, Glucose 94, Calcium 7.5 L, Magnesium 1.8 Physical Exam Const alert and no apparent distress Extremity Extremity Narrative: decreased swelling and erythema of right arm. hand notably less swollen. Assessment & Plan Assessment/Plan (1) Cellulitis of right elbow: (2) Sinus tachycardia: PLAN: Plan Right arm cellulitis * Improved. Initially began around his elbow but has progressed involving his whole arm and his right arm has gotten swollen. This is transpired while he has been in the hospital despite antibiotics with pip-tazo and vancomycin. Today, his arm perhaps looks slightly better though not significantly. * Repeat CAT scan showed a worsening edema without definitive focal drainable fluid collection * No evidence of SVT on the right upper extremity. * Elevate extremity use ice packs * Seen by infectious disease, who is recommending Ortho evaluation. Sinus tachycardia: * Likely reactive given the underlying infection. Obesity class II: Complicates care and recovery. DVT prophylaxis: Low risk, ambulate CODE STATUS: Full code, verified Expected disposition: To be determined. Monitor at least 1 more day. Charges/Coding Visit Charges Inpatient E&M: 62088 Subs Hosp L1
[2024-07-07] MEDS: oxyCODONE 5 MG Tablet PO ×2 (11:17→17:54)
[2024-07-07] MEDS: Acetaminophen 325 MG Tablet 650 MG PO ×2 (11:17→17:54)
[2024-07-07] MEDS: Vancomycin HCl 1,750 MG in 0.9% Normal Saline (500mL Bag) 500 ML 250 MG IV ×2 (11:58→18:52)
--- NOTE | 2024-07-07 12:41 | PCM.RX.CS ---
Consult Antibiotic Management Pharmacy has been consulted to manage selected antibiotic: Vancomycin Type of Intervention Type of Consult: Follow-up Suspected Infection Suspected Infection: Skin/Soft tissue Prior Doses of Antibiotics Prior Doses of Antibiotics Received/Current Regimen: current dose is 1750mg IV q8h Labs Labs: Sodium 143 mmol/L (136-145) 07/07/24 05:47 Potassium 3.0 mmol/L (3.5-5.1) L 07/07/24 05:47 Chloride 113 mmol/L (98-107) H 07/07/24 05:47 Carbon Dioxide 25.0 mmol/L (21.0-32.0) 07/07/24 05:47 Anion Gap 5 (5-15) 07/07/24 05:47 BUN 5 mg/dL (7-18) L 07/07/24 05:47 Creatinine 0.58 mg/dL (0.70-1.30) L 07/07/24 05:47 Est GFR (MDRD) Af Amer 207 mL/min (>60) 07/07/24 05:47 Est GFR (MDRD) Non-Af 171 mL/min (>60) 07/07/24 05:47 BUN/Creatinine Ratio 8.6 RATIO (10-20) L 07/07/24 05:47 Glucose 94 mg/dL (74-106) 07/07/24 05:47 Vancomycin Trough 16.0 ug/mL (5.0-15.0) H 07/07/24 10:43 Microbiology Microbiology: Microbiology 07/04/24 17:25 Blood Culture (Wb) - Left Hand Blood Culture - Preliminary No growth in 48 hours. Dosing Weight Weight used for dosin.6 kg Estimated Creatinine Clearance Estimated Creatinine Clearance: 239ml/min Goal Trough Goal Trough: 15-20 mcg/mL Pharmacy Plan for Drug Dosing Pharmacy Plan for Drug Dosing: The vanc trough drawn at 10:43 today was 16.0 mcg/ml (approx 7 1/4 hrs after the previous dose). This is within goal range so will keep same dose. Repeat a trough in 2 days per protocol. Pharmacy Service will continue to monitor and adjust dosing as required. Follow-Up Labs Follow-Up Labs: Trough: Vancomycin Date/Time Labs Ordered Labs to be done on [date and time ordered]: 07/09/24 11:00
--- NOTE | 2024-07-07 12:50 | PN.ORTHO_ITS ---
Subjective Subjective seen and examined. doing ok . no fever chills. feels he is improving. Objective Data Objective Data Vital Signs: Vital Signs Temp Pulse Resp BP Pulse Ox O2 Del Method 96.9 F L 77 16 130/90 H 98 Room Air 07/07/24 09:00 07/07/24 09:00 07/07/24 09:00 07/07/24 09:00 07/07/24 09:00 07/07/24 09:00 Oxygen Delivery Method Room Air Weight: 268 lb 0.008 oz Body Mass Index (BMI) 38.4 Intake & Output: Intake and Output for Last 24 Hours 07/05/24 07/06/24 07/07/24 23:59 23:59 23:59 Intake Total 3440.0 / 3440.0 1750 / 1750 50 / 50 Balance 3440.0 / 3440.0 1750 / 1750 50 / 50 Lab / Micro Data 07/07/24 05:47 07/07/24 05:47 Labs: Laboratory Results - last 24 hr 07/07/24 05:47: WBC 12.7 H, RBC 3.42 L, Hgb 10.6 L, Hct 32.2 L, MCV 94.2 H, MCH 31.0, MCHC 32.9, RDW Std Deviation 46.8 H, RDW Coeff of Tono 13.5, Plt Count 270, MPV 10.5, Neut % (Auto) Not Reportable, Absolute Neuts (auto) 10.7 H, Absolute Lymphs (auto) 0.38 L, Total Counted 100, Neutrophils % (Manual) 76 H, Band Neutrophils % 8 H, Lymphocytes % (Manual) 9 L, Monocytes % (Manual) 3, Eosinophils % (Manual) 2, Myelocytes % 2 H, Diff Path Review February, Platelet Estimate ADEQUATE, RBC Morphology NORM C+C, Sodium 143, Potassium 3.0 L, C hloride 113 H, Carbon Dioxide 25.0, Anion Gap 5, BUN 5 L, Creatinine 0.58 L, Estim Creat Clear Calc 239.03, Est GFR (MDRD) Af Amer 207, Est GFR (MDRD) Non-Af 171, BUN/Creatinine Ratio 8.6 L, Glucose 94, Calcium 7.5 L, Magnesium 1.8 07/07/24 10:43: Vancomycin Trough 16.0 H Micro: Microbiology 07/04/24 17:25 Blood Culture (Wb) - Left Hand Blood Culture - Preliminary No growth in 48 hours. Physical Exam Const alert and oriented x3 General Appearance: cooperative Extremity Extremity Narrative: Cellulitis of the right upper extremity erythema is demarcated his swelling is present but is dramatically improved according to patient. He has no pain with elbow range of motion wrist range of motion he has no sign of septic bursitis of the elbow he has no crepitation with palpation he is able to flex and extend all of the digits the compartments are soft he is neurovascular intact he has no skin breakdown. erythema is less intense then yesterday. Assessment & Plan Assessment/Plan (1) Cellulitis of right elbow: PLAN: Plan Cellulitis right upper extremity erythema improved since yesterday continue current care. Strict ice and elevation encourage elbow wrist finger range of motion.
--- NOTE | 2024-07-07 13:40 | PCM.PN.ID ---
Physical Exam Narrative Arm less red, about the same pain level. No fever, no n/v/d. Const alert and no apparent distress General Appearance: cooperative Resp normal air movement and clear to auscultation bilaterally Cardio regular rate and regular rhythm GI soft to palpation, non-tender and non-distended Skin Skin Narrative: RUE edema, tenderness, less red ID ID: Route of nutrition/ use of supplements: [] Nutritional Intake: [] IV Site: [] Post Catheter: [] Assessment & Plan Assessment/Plan (1) Cellulitis of right elbow: PLAN: Wbc is improved, CT showed no abscess. Seen by ortho, arm slowly improving. Keep vanc/zosyn for now. Plan is for po abx at discharge. Will follow
[2024-07-07 14:47] VITALS: BP 138/96; PULSE 77; RESP 16; TEMP 36.4; O2SAT 98
[2024-07-07] MEDS: Piperacil/Tazobactam 3.375 GM in 0.9% Normal Saline (50mL MB+) 50 ML IV ×2 (14:48→21:17)
[2024-07-07] MEDS: Ondansetron 4 MG/2 ML Vial IV (14:56)
[2024-07-07 15:04] LABS: Pathologist Review Reviewed
[2024-07-07 21:14] VITALS: BP 140/94; PULSE 78; RESP 18; TEMP 36; O2SAT 98
[2024-07-08] MEDS: Acetaminophen 325 MG Tablet 650 MG PO ×2 (01:05→09:37)
[2024-07-08] MEDS: oxyCODONE 5 MG Tablet PO (01:05)
[2024-07-08] MEDS: Vancomycin HCl 1,750 MG in 0.9% Normal Saline (500mL Bag) 500 ML 250 MG IV ×2 (02:50→11:17)
[2024-07-08 03:15] VITALS: BP 154/92; PULSE 73; RESP 18; TEMP 36.1; O2SAT 97
[2024-07-08] MEDS: Piperacil/Tazobactam 3.375 GM in 0.9% Normal Saline (50mL MB+) 50 ML IV (05:26)
[2024-07-08 09:00] VITALS: BP 137/89; PULSE 74; RESP 16; TEMP 36.6; O2SAT 96
--- NOTE | 2024-07-08 10:57 | PCM.PN.ID ---
Physical Exam Narrative Feeling better, arm much less sore, less red. No fever, no n/v/d. Const alert and no apparent distress General Appearance: cooperative Resp normal air movement and clear to auscultation bilaterally Cardio regular rate and regular rhythm GI soft to palpation, non-tender and non-distended Skin Skin Narrative: RUE swelling and redness much better ID ID: Route of nutrition/ use of supplements: [] Nutritional Intake: [] IV Site: [] Post Catheter: [] Assessment & Plan Assessment/Plan (1) Cellulitis of right elbow: PLAN: Wbc is improved, CT showed no abscess. Seen by ortho, arm much better today. Ok for home with one week po doxy/keflex Will follow prn, d/w primary
--- NOTE | 2024-07-08 11:05 | DS.PCM_ITS ---
Providers Date of Admission: 07/02/24 Primary Care Physician: Kiara Primary Care Phys Consultations 07/05/24 15:22 Consult: Infectious Disease Routine Consulting Provider: Morris Hernandez Reason for Consult: right arm cellulitis EMERGENT Consult: No Notified: Yes Date Notified: 07/05/24 Time Notified: 15:29 Method of Notification: Text 07/06/24 14:08 Consult: Orthopedics Routine Consulting Provider: Marquis Pepper Reason for Consult: right arm cellulitis EMERGENT Consult: No Notified: Yes Date Notified: 07/06/24 Time Notified: 14:08 Method of Notification: Verbal Reason For Visit: RIGHT ELBOW CELLULITIS W/PERSISTENT SINUS TACHY Diagnosis Discharge Diagnosis (1) Cellulitis of right elbow: Status: Acute Code(s): L03.113 - Cellulitis of right upper limb Plan Right arm cellulitis * Improved. Initially began around his elbow but has progressed involving his whole arm and his right arm has gotten swollen. This is transpired while he has been in the hospital despite antibiotics with pip-tazo and vancomycin. Today, his arm perhaps looks slightly better though not significantly. * Repeat CAT scan showed a worsening edema without definitive focal drainable fluid collection * No evidence of SVT on the right upper extremity. * Elevate extremity use ice packs * Seen by infectious disease. Is okay with discharge with doxycycline and cephalexin. * Previously seen by orthopedics who did not advise any surgery as there is no drainable abscess. Sinus tachycardia: * Likely reactive given the underlying infection. Obesity class II: Complicates care and recovery. DVT prophylaxis: Low risk, ambulate CODE STATUS: Full code, verified Expected disposition: To home Medications at Discharge Home Medications ibuprofen 400 mg tablet 400 mg PO DAILY 01/23/23 acetaminophen 325 mg tablet 1,000 mg (3.0769 x 325 mg) PO Q8H PRN PRN Pain 1-10 Or Fever>100.7 #0 tabs 07/08/24 cephalexin 500 mg capsule 500 mg PO 4X/DAY 7 days #28 caps 07/08/24 doxycycline hyclate 100 mg capsule 100 mg PO BID #14 caps 07/08/24 Hospital Course Operations None Procedures None Summary of Care Provided Minutes Spent on Discharge: 32 Hospital Course: Patient presents with cellulitis. Was initially put on Unasyn and Doxy but continued to get worse and then was finally put on pip-tazo and vancomycin. Also was advised to have the patient elevate his arm and use ice. Over the past few days, his arm has steadily improved. Patient was seen in consultation by infectious disease as well as orthopedics. Patient did have follow-up CT that showed no drainable abscess. Arm is steadily improved. Patient be discharged with doxycycline and cephalexin. Weight / BMI Weight Weight: 121.563 kg Body Mass Index (BMI) 38.4 ABG / Lab / Microbiology Data 07/07/24 05:47 07/07/24 05:47 Laboratory: Laboratory Results - last 24 hr 07/06/24 10:18: Diff Path Review Reviewed 07/07/24 10:43: Vancomycin Trough 16.0 H Microbiology: Microbiology 07/04/24 17:25 Blood Culture (Wb) - Left Hand Blood Culture - Preliminary No growth in 48 hours. D/C Instructions Discharge Diet: No restrictions Return to work on: 07/12/24 (No limitations upon returning to work.) Meaningful Use Info Meaningful Use Meaningful Use Diagnoses (Choose all that apply): None applicable Ischemic Stroke Statin Dosing Therapy Reference: STATIN DOSE THERAPY REFERENCE: * Patients > 75 years receive moderate or high dose statin therapy. * Patients 75 years or YOUNGER should receive HIGH intensity statin dose unless contraindicated. You will be required to document reason for non-treatment if statin daily dose does not meet guidelines. HIGH DOSE STATIN THERAPY DAILY Atorvastatin > than or = to 40 mg Rosuvastatin > than or = to 20 mg Amlodipine + Atorvastatin > than or = to 2.5/40 mg Ezetimibe + Simvastatin 10/80 mg Simvastatin 80mg Discharge Plan Admission Admit Date/Time: 07/02/24 09:09 Primary Reason for Your Visit: Right arm cellulitis Attending Provider: Jeevan Hope Primary Care Provider: Care Physician,No Primary Consulting Providers: Lisandro Lorenz; Morris Hernandez; Marquis Pepper Instructions Additional Instructions / Restrictions: While at rest, keep your right arm elevated to above the level of your heart. At other times, and recommend wearing a compression sleeve until the swelling has improved. If you notice increased swelling, increased redness, notify your physician or return to the emergency room. Discharge Orders/Prescriptions Prescriptions: New cephalexin 500 mg capsule 500 mg PO 4X/DAY 7 Days Qty: 28 0RF doxycycline hyclate 100 mg capsule 100 mg PO BID Qty: 14 0RF acetaminophen 325 mg Tablet 1,000 mg PO Q8H PRN PRN (Reason: Pain 1-10 Or Fever>100.7) Qty: 0 0RF Continued ibuprofen 400 mg tablet 400 mg PO DAILY Patient Comments: pt states he normally takes as needed, but last few days has been taking scheduled Referrals / Follow Up: Care Physician,No Primary [Primary Care Provider] - Disposition Disposition (needs filled in before D/C Order can be placed): Home, Self Care Charges/Coding Visit Charges Inpatient E&M: 52113 Disch Hosp >30min
--- NOTE | 2024-07-08 14:05 | CASEMGMT ---
Patient has order for discharge. RN CM in to discuss needs at discharge, at bedside. Patient denies needs or help at discharge. Patient had no further questions or concerns.
[2024-07-08 14:07] LABS: Pathologist Review Reviewed
== END 2024-07-08 14:18 | disposition home or self-care (01) | DRG 603 ==
LOC: ED 08:39 → MS3 10:28 → PCU 07-05 07:12
PROVIDERS: Admitting Provider Hospitalist; Emergency Provider Emergency Medicine
DX: L03.113 Cellulitis of right upper limb (principal); E66.9 Obesity, unspecified; F17.290 Nicotine dependence, other tobacco product, uncomplicated; R00.0 Tachycardia, unspecified; Z68.38 Body mass index [BMI] 38.0-38.9, adult
CPT/HCPCS: 36415; 73080; 73201; 80048; 80202; 83735; 84145; 85025; 85027; 85652; 86140; 87040; 93971; 97802; 97803; 99284; J7040; J7120; Q9967; A4216; J0295; J2405

== ENCOUNTER → 2024-08-16 | Outpatient (CLI) | payer OTHER, SELFPAY ==
[2024-08-16 15:54] LABS: Hematocrit 42.4 % (40-54); Hemoglobin 14.2 g/dL (13.0-16.5); Mean Corp Hgb Conc 33.5 g/dL (32-36); Mean Corpuscular Hgb 31.1 pg (27.0-32.0); Mean Corpuscular Volume 92.8 fL (80-94); Mean Platelet Vol. 10.6 fl (6.2-12.0); Platelet Count 250 K/mm3 (150-450); RBC Distribution Width CV 12.8 % (11.6-14.6); RBC Distribution Width SD 43.6 fl (35.1-43.9); Red Blood Count 4.57 M/mm3 (4.6-6.2); White Blood Count 8.3 K/mm3 (4.4-11.0)
== END | disposition home or self-care (01) ==
LOC: LAB 15:27
PROVIDERS: PCP Internal Medicine Infectious Disease; Referring Provider Internal Medicine Infectious Disease; Visit Provider Internal Medicine Infectious Disease
DX: M00.9 Pyogenic arthritis, unspecified (principal)
CPT/HCPCS: 36415; 85027